=== PATIENT | male | born 1995 | race African-American/Black ===

== ENCOUNTER 2017-08-26 21:14 | Emergency (ER) | payer OTHER ==
[~2017-08-26] VITALS: Ht 170.2 cm; Wt 65.8 kg
[2017-08-26 22:02] VITALS: BP 104/48
== END 2017-08-26 22:03 | disposition home or self-care (01) ==
LOC: M.ERS 21:14
DX: M79.644 Pain in right finger(s) (principal); J45.909 Unspecified asthma, uncomplicated; Z91.013 Allergy to seafood

== ENCOUNTER 2018-07-27 08:11 | Emergency (ER) | payer OTHER ==
[~2018-07-27] VITALS: Ht 182.9 cm; Wt 72.6 kg
[2018-07-27 08:18] VITALS: BP 122/67
[2018-07-27] MEDS ORDERED: PREDNISONE 20 M20 M1 PO (08:24)
[2018-07-27] MEDS ORDERED: VENTOLIN HFA 1818 GM INH (08:24)
== END 2018-07-27 08:46 | disposition home or self-care (01) ==
LOC: M.ERS 08:11
DX: J45.901 Unspecified asthma with (acute) exacerbation (principal); Z91.013 Allergy to seafood

== ENCOUNTER 2018-08-01 21:41 | Emergency (ER) | payer OTHER ==
[~2018-08-01] VITALS: Ht 182.9 cm; Wt 72.6 kg
[~2018-08-01 21:41] MED LIST: PREDNISONE 20 M20 M1 PO; VENTOLIN HFA 1818 GM INH
[2018-08-01 22:30] LABS: INFLUENZA A ANTIGEN None Detected (None Detect); INFLUENZA B ANTIGEN None Detected (None Detect)
[2018-08-01] MEDS ORDERED: AMOXICILLIN 50500 M1 PO (22:52)
[2018-08-01] MEDS ORDERED: ONDANSETRON HCL4 M2 PO (22:53)
[2018-08-01] MEDS ORDERED: NAPROSYN500 MG PO (22:53)
[2018-08-01 23:00] VITALS: BP 130/64
== END 2018-08-01 23:01 | disposition home or self-care (01) ==
LOC: M.ERS 21:41
PROVIDERS: Emergency Medicine
DX: J06.9 Acute upper respiratory infection, unspecified (principal); R11.0 Nausea; J45.909 Unspecified asthma, uncomplicated; Z91.013 Allergy to seafood

== ENCOUNTER 2018-11-20 14:30 | Emergency (ER) | payer OTHER ==
[~2018-11-20] VITALS: Ht 182.9 cm; Wt 72.6 kg
[~2018-11-20 14:30] MED LIST changes: +AMOXICILLIN 50500 M1 PO; +NAPROSYN500 MG PO; +ONDANSETRON HCL4 M2 PO
[2018-11-20] MEDS ORDERED: IBUPROFEN 800800 M1 PO (15:44)
[2018-11-20] MEDS ORDERED: NORCO 5-325 TA1 EAC1 PO (15:44)
[2018-11-20 16:02] VITALS: BP 107/61
== END 2018-11-20 16:03 | disposition home or self-care (01) ==
LOC: M.ERS 14:30
DX: S62.653A Nondisplaced fracture of middle phalanx of left middle finger, initial encounter for closed fracture (principal); Z91.013 Allergy to seafood; X58.XXXA Exposure to other specified factors, initial encounter; Y93.89 Activity, other specified; Y92.89 Other specified places as the place of occurrence of the external cause; Y99.8 Other external cause status

== ENCOUNTER 2018-12-14 08:47 | Emergency (ER) | payer OTHER ==
[~2018-12-14] VITALS: Ht 182.9 cm; Wt 72.6 kg
[~2018-12-14 08:47] MED LIST changes: +IBUPROFEN 800800 M1 PO; +NORCO 5-325 TA1 EAC1 PO
[2018-12-14] MEDS ORDERED: PREDNISONE50 MG PO (09:30)
[2018-12-14] MEDS ORDERED: ZPAK PO (09:30)
[2018-12-14] MEDS ORDERED: VENTOLIN HFA 1818 GM INH (09:30)
[2018-12-14 09:48] VITALS: BP 120/75
== END 2018-12-14 09:48 | disposition home or self-care (01) ==
LOC: M.ERS 08:47
DX: J45.901 Unspecified asthma with (acute) exacerbation (principal); Z91.013 Allergy to seafood

== ENCOUNTER 2019-02-11 07:39 | Emergency (ER) | payer OTHER ==
[~2019-02-11] VITALS: Ht 182.9 cm; Wt 74.8 kg
[~2019-02-11 07:39] MED LIST changes: +PREDNISONE50 MG PO; +ZPAK PO
[2019-02-11] MEDS ORDERED: MELOXICAM15 MG PO (09:28)
[2019-02-11 09:36] VITALS: BP 111/61
== END 2019-02-11 09:37 | disposition home or self-care (01) ==
LOC: M.ERS 07:39
DX: S46.311A Strain of muscle, fascia and tendon of triceps, right arm, initial encounter (principal); J45.909 Unspecified asthma, uncomplicated; Z91.013 Allergy to seafood; X58.XXXA Exposure to other specified factors, initial encounter; Y93.89 Activity, other specified; Y92.89 Other specified places as the place of occurrence of the external cause; Y99.8 Other external cause status

== ENCOUNTER 2019-04-08 12:16 | Emergency (ER) | payer OTHER ==
[~2019-04-08] VITALS: Ht 182.9 cm; Wt 77.1 kg
[~2019-04-08 12:16] MED LIST changes: +MELOXICAM15 MG PO
[2019-04-08 12:20] VITALS: BP 120/69
[2019-04-08] MEDS ORDERED: TYLENOL WITH CO1 TA1 PO (13:24)
[2019-04-08] MEDS ORDERED: NAPROSYN500 MG PO (13:24)
[2019-04-08] MEDS ORDERED: AMOXICILLIN 50500 MG PO (13:24)
[2019-04-08] MEDS ORDERED: VENTOLIN HFA 1818 GM INH (13:28)
== END 2019-04-08 13:20 | disposition home or self-care (01) ==
LOC: M.ERS 12:16
DX: K00.6 Disturbances in tooth eruption (principal); J45.909 Unspecified asthma, uncomplicated; Z76.0 Encounter for issue of repeat prescription; Z91.013 Allergy to seafood

== ENCOUNTER 2019-06-30 07:56 | Emergency (ER) | payer OTHER ==
[~2019-06-30] VITALS: Ht 182.9 cm; Wt 72.6 kg
[~2019-06-30 07:56] MED LIST changes: +AMOXICILLIN 50500 MG PO; +TYLENOL WITH CO1 TA1 PO
[2019-06-30 08:35] VITALS: BP 115/71
== END 2019-06-30 08:36 | disposition home or self-care (01) ==
LOC: M.ERS 07:56
DX: J45.909 Unspecified asthma, uncomplicated (principal); Z91.013 Allergy to seafood

== ENCOUNTER 2020-02-15 17:13 | Emergency (ER) | payer OTHER ==
[~2020-02-15] VITALS: Ht 182.9 cm; Wt 81.7 kg
[2020-02-15] MEDS ORDERED: FLEXERIL PO (20:29)
[2020-02-15] MEDS ORDERED: IBUPROFEN 800800 M1 PO (20:31)
[2020-02-15 21:25] VITALS: BP 108/62
== END 2020-02-15 21:20 | disposition home or self-care (01) ==
LOC: M.ERS 17:13
DX: S46.211A Strain of muscle, fascia and tendon of other parts of biceps, right arm, initial encounter (principal); J45.909 Unspecified asthma, uncomplicated; Z91.030 Bee allergy status; W18.39XA Other fall on same level, initial encounter; Y93.89 Activity, other specified; Y92.89 Other specified places as the place of occurrence of the external cause; Y99.8 Other external cause status

== ENCOUNTER 2020-04-21 16:16 | Emergency (ER) | payer BC ==
[~2020-04-21] VITALS: Ht 182.9 cm; Wt 79.4 kg
[~2020-04-21 16:16] MED LIST changes: +FLEXERIL PO
[2020-04-21 16:24] VITALS: BP 115/72
== END 2020-04-21 19:29 | disposition home or self-care (01) ==
LOC: M.ERS 16:16
DX: S63.592A Other specified sprain of left wrist, initial encounter (principal); J45.909 Unspecified asthma, uncomplicated; Z91.013 Allergy to seafood; W01.0XXA Fall on same level from slipping, tripping and stumbling without subsequent striking against object, initial encounter; Y93.89 Activity, other specified; Y92.89 Other specified places as the place of occurrence of the external cause; Y99.9 Unspecified external cause status

== ENCOUNTER 2020-10-04 07:27 | Emergency (ER) | payer BC ==
[~2020-10-04] VITALS: Ht 182.9 cm; Wt 77.6 kg
[2020-10-04 07:35] VITALS: BP 119/61
== END 2020-10-04 08:06 | disposition home or self-care (01) ==
LOC: M.ERS 07:27
DX: S43.491A Other sprain of right shoulder joint, initial encounter (principal); J45.909 Unspecified asthma, uncomplicated; X50.9XXA Other and unspecified overexertion or strenuous movements or postures, initial encounter; Y93.89 Activity, other specified; Y92.89 Other specified places as the place of occurrence of the external cause; Y99.8 Other external cause status

== ENCOUNTER 2020-10-11 19:10 | Emergency (ER) | payer BC ==
[~2020-10-11] VITALS: Ht 182.9 cm; Wt 77.1 kg
[2020-10-11 20:43] VITALS: BP 115/64
== END 2020-10-11 20:43 | disposition home or self-care (01) ==
LOC: M.ERS 19:10
DX: M25.511 Pain in right shoulder (principal); J45.909 Unspecified asthma, uncomplicated; Z91.013 Allergy to seafood

== ENCOUNTER 2021-01-18 20:55 | Emergency (ER) | payer BC ==
[~2021-01-18] VITALS: Ht 182.9 cm; Wt 77.6 kg
[2021-01-18] MEDS ORDERED: VENTOLIN HFA 1818 GM INH ×2 (21:31→22:36)
[2021-01-18 21:42] VITALS: BP 133/72
== END 2021-01-18 22:47 | disposition home or self-care (01) ==
LOC: M.ERS 20:55
DX: J45.901 Unspecified asthma with (acute) exacerbation (principal); Z91.013 Allergy to seafood

== ENCOUNTER 2021-02-17 20:02 | Emergency (ER) | payer BC ==
[~2021-02-17] VITALS: Ht 182.9 cm; Wt 73.5 kg
[2021-02-17 20:32] LABS: ABSOLUTE BASOPHILS 0.1 thou/uL (0.0-0.2); ABSOLUTE EOSINOPHILS 0.3 thou/uL (0.0-0.7); ABSOLUTE LYMPHOCYTES 2.8 thou/uL (0.8-5.3); ABSOLUTE MONOCYTES 0.4 thou/uL (0.0-1.2); ABSOLUTE NEUTROPHILS 3.5 thou/uL (1.6-8.1); HEMATOCRIT 48.8 % (42.0-52.0); HEMOGLOBIN 16.5 gm/dL (14.0-18.0); LYMPHOCYTES 39.6 %; MCH 28.2 pg (26.0-34.0); MCHC 33.8 g/dL (28.0-37.0); MCV 83.3 fL (80.0-100.0); MONOCYTES 6.2 %; MPV 8.2 fl. (7.2-11.1); NUCLEATED RBCS 0 /100WBC; PLATELET COUNT* 253 thou/uL (150-400); POLYS 49.2 %; RBC 5.86 mil/uL (4.50-6.00); RDW-CV 13.1 % (10.5-14.5); WBC 7.1 thou/uL (4.0-11.0)
[2021-02-17 20:41] LABS: CALCIUM 8.7 mg/dL (8.5-10.1); CREATININE 1.2 mg/dL (0.6-1.3)
[2021-02-17 20:45] LABS: ALBUMIN 4.3 g/dL (3.4-5.0); TOTAL BILIRUBIN 0.3 mg/dL (<0.1-1.0); TOTAL PROTEIN 7.7 g/dL (6.4-8.2)
[2021-02-17 20:46] LABS: URINE BILIRUBIN NEGATIVE (Negative); URINE BLOOD NEGATIVE (Negative); URINE CLARITY CLEAR; URINE COLOR YELLOW; URINE GLUCOSE-RANDOM NEGATIVE (Negative); URINE KETONES NEGATIVE (Negative); URINE LEUKOCYTES NEGATIVE (Negative); URINE NITRITE NEGATIVE (Negative); URINE PROTEIN NEGATIVE (Negative); URINE UROBILINOGEN 0.2 E.U./dl (0.2-1.0)
[2021-02-17 21:48] VITALS: BP 127/70
== END 2021-02-17 21:49 | disposition home or self-care (01) ==
LOC: M.ERS 20:02
PROVIDERS: Physician Assistant
DX: R10.32 Left lower quadrant pain (principal); J45.909 Unspecified asthma, uncomplicated; Z79.899 Other long term (current) drug therapy; Z91.013 Allergy to seafood

== ENCOUNTER 2021-02-28 17:46 | Emergency (ER) | payer BC ==
[~2021-02-28] VITALS: Ht 182.9 cm; Wt 75.8 kg
[2021-02-28 18:48] VITALS: BP 112/50
== END 2021-02-28 18:49 | disposition home or self-care (01) ==
LOC: M.ERS 17:46
DX: R43.8 Other disturbances of smell and taste (principal); Z20.822 Contact with and (suspected) exposure to COVID-19; J45.909 Unspecified asthma, uncomplicated; Z91.013 Allergy to seafood

== ENCOUNTER 2021-04-04 12:09 | Emergency (ER) | payer BC ==
[~2021-04-04] VITALS: Ht 182.9 cm; Wt 74.8 kg
[2021-04-04 12:21] VITALS: BP 108/68
[2021-04-04 12:55] LABS: INFLUENZA A ANTIGEN Negative (Negative); INFLUENZA B ANTIGEN Negative (Negative)
== END 2021-04-04 13:18 | disposition home or self-care (01) ==
LOC: M.ERS 12:09
PROVIDERS: Nurse Practitioner Family
DX: B34.9 Viral infection, unspecified (principal); Z20.822 Contact with and (suspected) exposure to COVID-19; J45.909 Unspecified asthma, uncomplicated; Z79.899 Other long term (current) drug therapy; Z91.013 Allergy to seafood

== ENCOUNTER 2021-04-11 19:55 | Emergency (ER) | payer BC ==
[~2021-04-11] VITALS: Ht 182.9 cm; Wt 72.6 kg
[2021-04-11 20:13] VITALS: BP 128/62
== END 2021-04-11 20:51 | disposition home or self-care (01) ==
LOC: M.ERS 19:55
DX: Z20.822 Contact with and (suspected) exposure to COVID-19 (principal); Z02.79 Encounter for issue of other medical certificate; J45.909 Unspecified asthma, uncomplicated; Z79.899 Other long term (current) drug therapy; Z91.013 Allergy to seafood

== ENCOUNTER 2021-05-01 14:27 | Emergency (ER) | payer OTHER ==
[~2021-05-01] VITALS: Ht 182.9 cm; Wt 72.6 kg
[2021-05-01 16:07] LABS: URINE BILIRUBIN NEGATIVE (Negative); URINE BLOOD NEGATIVE (Negative); URINE CLARITY CLEAR; URINE COLOR YELLOW; URINE GLUCOSE-RANDOM NEGATIVE (Negative); URINE KETONES NEGATIVE (Negative); URINE LEUKOCYTES-REFLEX NEGATIVE (Negative); URINE NITRITE-REFLEX NEGATIVE (Negative); URINE PROTEIN NEGATIVE (Negative); URINE SPECIFIC GRAVITY >= 1.030 (1.005-1.030); URINE UROBILINOGEN 0.2 E.U./dl (0.2-1.0)
[2021-05-01 16:25] LABS: HEMATOCRIT 46.5 % (42.0-52.0); HEMOGLOBIN 15.7 gm/dL (14.0-18.0); MCH 28.3 pg (26.0-34.0); MCHC 33.8 g/dL (28.0-37.0); MCV 83.6 fL (80.0-100.0); MPV 8.1 fl. (7.2-11.1); NUCLEATED RBCS 0 /100WBC; PLATELET COUNT* 218 thou/uL (150-400); RBC 5.57 mil/uL (4.50-6.00); RDW-CV 13.1 % (10.5-14.5); WBC 10.2 thou/uL (4.0-11.0)
[2021-05-01 16:27] LABS: CALCIUM 8.9 mg/dL (8.5-10.1); CREATININE 1.1 mg/dL (0.6-1.3)
[2021-05-01 16:31] LABS: ALBUMIN 4.5 g/dL (3.4-5.0); TOTAL BILIRUBIN 0.9 mg/dL (<0.1-1.0); TOTAL PROTEIN 7.7 g/dL (6.4-8.2)
[2021-05-01 16:40] VITALS: BP 98/78
[2021-05-01 16:42] LABS: ABSOLUTE LYMPHOCYTES 1.4 thou/uL (0.8-5.3); ABSOLUTE MONOCYTES 0.1 thou/uL (0.0-1.2); ABSOLUTE NEUTROPHILS 8.7 thou/uL (1.6-8.1); PLATELET ESTIMATE ADEQUATE
--- NOTE | 2021-05-02 09:57 | EKG ---
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
== END 2021-05-01 16:44 | disposition home or self-care (01) ==
LOC: M.ERS 14:27
PROVIDERS: Physician Assistant
DX: R10.13 Epigastric pain (principal); J45.909 Unspecified asthma, uncomplicated; Z91.013 Allergy to seafood